=== PATIENT | male | born 1970 | race Caucasian/White ===

== ENCOUNTER 2018-04-28 15:48 | Emergency (ER) | payer BC, OTHER ==
[~2018-04-28] VITALS: Ht 182.9 cm; Wt 106.6 kg
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
[2018-04-28] MEDS ORDERED: fentaNYL INJECTION 100 MCG/2 ML AMP IVP ONE ×2 (18:00→19:00)
[2018-04-28] MEDS ORDERED: ONDANSETRON 4 MG/2 ML (SDV) Z0FRAN ONE (19:00)
[2018-04-28] MEDS ORDERED: ONDANSETRON 4 MG/2 ML (SDV) Z0FRAN IVP ONE (19:00)
[2018-04-28 19:17] VITALS: BP 146/95
== END 2018-04-28 19:17 | disposition short-term general hospital (02) ==
LOC: EDUNIT# 15:48 → ER 15:50
DX: S06.5X0A Traumatic subdural hemorrhage without loss of consciousness, initial encounter (principal); S82.832A Other fracture of upper and lower end of left fibula, initial encounter for closed fracture; M25.572 Pain in left ankle and joints of left foot; R40.2142 Coma scale, eyes open, spontaneous, at arrival to emergency department; R40.2252 Coma scale, best verbal response, oriented, at arrival to emergency department; R40.2362 Coma scale, best motor response, obeys commands, at arrival to emergency department; V28.4XXA Motorcycle driver injured in noncollision transport accident in traffic accident, initial encounter
CPT/HCPCS: 70450; 70486; 72125; 73590; 73610; 73630; 96374; 96375; 96376

== ENCOUNTER → 2018-06-12 | Outpatient (CLI) | payer OTHER ==
--- NOTE | 2018-06-12 11:36 | Diagnostic Imaging Report ---
EXAMINATION: Left ankle at 928h. INDICATION: Ankle pain 3 views were obtained. The prior exam of 04/28 noted a mildly displaced fracture of the distal fibula. In the interval since the prior study patient has undergone a surgical procedure. There is now an orthopedic plate and screw fixation device along the lateral aspect of the distal fibula. The orthopedic hardware appears to be in good position and the main fracture fragments are near anatomic in alignment. The fracture line itself is only barely visible. There is no acute fracture identified. The talar dome is smooth and but there is an area of slightly diminished density in the subarticular region of the medial aspect of the talar dome. This finding was not clearly evident on the prior exam. The possibility that this is related to mild osteochondritis dissecans should be considered. If further imaging is desired, then MRI would be recommended. The ankle mortise is not widened. There is still soft tissue edema over the lateral malleolus. The prominent calcaneal spur noted on the prior study is again evident. IMPRESSION: 1. There are postoperative changes consistent with a repair of a fracture of the distal fibula seen on the prior exam. The orthopedic hardware appears to be in good position and the main fracture fragments are near anatomic in alignment. 2. There is no acute bony abnormality noted. 3. The area of slightly altered density in the subarticular region of the medial aspect of the talar dome does raise the question of osteochondritis dissecans. Additional considerations as above. Dictated by: Dictated on workstation # [id number]
== END ==
LOC: RAD 08:52
PROVIDERS: ATTEND Orthopaedic Surgery
DX: S82.62XA Displaced fracture of lateral malleolus of left fibula, initial encounter for closed fracture (principal); M77.32 Calcaneal spur, left foot; Z98.890 Other specified postprocedural states; Z96.7 Presence of other bone and tendon implants
CPT/HCPCS: 73610

== ENCOUNTER 2021-04-28 05:43 | Outpatient (CLI) | payer OTHER ==
[~2021-04-28] VITALS: Ht 182.9 cm; Wt 106.8 kg
[2021-04-28] MEDS ORDERED: LISI20TA26 PO (15:02)
[2021-04-28] MEDS ORDERED: UBID1CAP53 PO (15:02)
== END 2021-04-29 08:16 | disposition home or self-care (01) ==
LOC: PREOP 05:43
PROVIDERS: ATTEND Surgery
DX: Z01.818 Encounter for other preprocedural examination (principal)

== ENCOUNTER 2021-05-05 07:21 | Day surgery (SDC) | payer OTHER ==
[~2021-05-05] VITALS: Ht 183 cm; Wt 106.8 kg
[~2021-05-05 07:21] MED LIST: LISI20TA26 PO; UBID1CAP53 PO
[2021-05-05] MEDS ORDERED: LACTATED RINGERS 1,000 ML IV STA (07:34)
[2021-05-05] MEDS ORDERED: LACTATED RINGERS 1,000 ML IV ONE (07:40)
[2021-05-05 07:56] VITALS: BP 125/71
[2021-05-05] MEDS ORDERED: PROPOFOL INJECTION 50 ML IV ONE ×2 (08:12→09:06)
--- NOTE | 2021-05-05 08:22 | Progress Note-Pre Operative ---
Pre-Operative Progress Note H&P Reviewed The H&P was reviewed, patient examined and no changes noted. Time Seen by Provider: 08:16 Date H&P Reviewed: May 05, 2021 Time H&P Reviewed: 08:16 Pre-Operative Diagnosis: screening colonoscopy MECCA PRIETO DO May 05, 2021 08:22
[2021-05-05 09:26] VITALS: BP 106/64
--- NOTE | 2021-05-05 09:29 | Progress Note-Post Operative ---
Post-Operative Progess Note Surgeon (s)/Bell Spinner (s) Surgeon MECCA PRIETO DO Bell Spinner: none Pre-Operative Diagnosis screening colonoscopy Post-Operative Diagnosis Polyp Diverticula int hemorrhoids Procedure & Operative Findings Date of Procedure 05/05/21 Procedure Performed/Findings colonoscopy with hot bx PROCEDURE NOTE: After informed consent was obtained, the patient was brought to the endoscopy suite, placed in bed in left lateral decubitus position. He was administered IV sedation by the STONE CHIMNEY MASON who then monitored his vitals the entire time, heart rate, blood pressure and pulse ox and the scope was inserted, pushed all the way to about 150 cm and pushed into the cecum. Took a picture of appendiceal orifice and then slowly withdrew the scope insufflating to look circumferentially at the lopez starting in the cecum. Then continued up the ascending colon to the hepatic flexure, then down the transverse colon to the splenic flexure. Into the descending colon and in here found a flat polyp; elected to do a hot biopsy, did two bites. Also noted some diverticula here and then continued down to the sigmoid and then into the rectal vault. Retroflexed the scope in the vault and took pictures of the internal hemorrhoids; probably grade I. The patient tolerated the procedure. He was recovered in endoscopy suite. Anesthesia Type IV sedation by STONE CHIMNEY MASON Estimated Blood Loss Estimated blood loss (mL): scant Specimens/Packing Specimens Removed desc colon polyp MECCA PRIETO DO May 05, 2021 09:28
--- NOTE | 2021-05-05 09:29 | Endoscopy Discharge Instruct ---
Endo Procedure/Findings Findings 1.: Polyp 2.: Diverticulosis 3.: Internal Hemorrhoids Discharge Instructions - Activity: You might feel a little sleepy until tomorrow. This is due to the medicine you received to relax you. Until tomorrow, you should: NOT drive a car, operate machinery or power tools. NOT drink any alcoholic beverages. NOT make any important decisions or sign importortant papers. Do not return to work until tomorrow, unless otherwise instructed. Resume previous activities tomorrow. Diet: Start by taking liquids. If you tolerate liquids, advance to solid food. 1.: Colonscopy in 5 years Notify Physician - If you experience excessive bleeding, unusual abdominal pain, fever, or chest pain, contact your doctor immediately. MECCA PRIETO DO May 05, 2021 09:29
[2021-05-05 09:31] VITALS: BP 109/72
[2021-05-05 09:35] VITALS: BP 113/76
[2021-05-05 10:05] VITALS: BP 134/87
--- NOTE | 2021-05-05 10:28 | Anesthesia-General Post-Op ---
MAC Patient Condition Mental Status/LOC: Same as Preop Cardiovascular: Satisfactory Nausea/Vomiting: Absent Respiratory: Satisfactory Pain: Controlled Complications: Absent Post Op Complications Complications None Follow Up Care/Instructions Patient Instructions None needed. Anesthesiology Discharge Order Discharge Order Patient is doing well, no complaints, stable vital signs, no apparent adverse anesthesia problems. No complications reported per nursing. FABIANO MENON CRNA May 05, 2021 10:28
== END 2021-05-05 10:10 | disposition home or self-care (01) ==
LOC: ENDO 07:21
PROVIDERS: ATTEND Surgery
DX: Z12.11 Encounter for screening for malignant neoplasm of colon (principal); D12.4 Benign neoplasm of descending colon; I10 Essential (primary) hypertension; K57.30 Diverticulosis of large intestine without perforation or abscess without bleeding; K64.8 Other hemorrhoids; E78.5 Hyperlipidemia, unspecified; E66.9 Obesity, unspecified; Z68.33 Body mass index [BMI] 33.0-33.9, adult; Z80.0 Family history of malignant neoplasm of digestive organs; Z79.899 Other long term (current) drug therapy